=== PATIENT | female | born 1985 | race Caucasian/White ===

== ENCOUNTER → 2017-02-27 | Outpatient (CLI) | payer OTHER | LOC: CAT 07:56 | DX: Z13.6 Encounter for screening for cardiovascular disorders (principal) ==

== ENCOUNTER 2019-12-10 03:14 | Emergency (ER) | payer BC, OTHER ==
[~2019-12-10] VITALS: Ht 160 cm; Wt 74.8 kg
[2019-12-10 04:31] LABS: ABSOLUTE NEUTROPHILS 7.2 thou/uL (1.4-8.2); BASOPHILS 0.2 % (0.0-2.0); EOSINOPHILS 1.7 % (0.0-3.0); HEMATOCRIT 44.9 % (37.0-47.0); HEMOGLOBIN 15.5 gm/dL (12.0-15.0); MCH 30.6 pg (26.0-34.0); MCHC 34.6 g/dL (28.0-37.0); MCV 88.4 fL (80.0-100.0); MONOCYTES 6.8 % (1.0-8.0); PLATELET COUNT 293 thou/uL (150-400); POLYS 72.3 % (36.0-66.0); RBC 5.08 mil/uL (4.20-5.00); RDW 12.4 % (10.5-14.5); WBC 9.9 thou/uL (4.0-11.0)
[2019-12-10 04:42] LABS: CALCIUM 9.2 mg/dL (8.5-10.1); CREATININE 0.9 mg/dL (0.6-1.0); POTASSIUM 3.9 mmol/L (3.5-5.1)
[2019-12-10] MEDS ORDERED: PREDNISONE 10 M10 M1 PO (05:32)
[2019-12-10] MEDS ORDERED: KEFLEX500 M1 PO (05:32)
[2019-12-10 05:41] VITALS: BP 103/64
--- NOTE | 2019-12-12 07:44 | EKG ---
[facility] [place] [address] ELECTROCARDIOGRAM REPORT Name: RICKEY DAN Room #: DEP [facility]#: [id number] Admission: 12/10/19 Attend Phys: Discharge: 12/10/19 Date of : 85 Report #: [id number] THIS REPORT FOR: cc: Greg Lucas Steven F. DO Lundgren, Craig H. MD [facility] THIS REPORT FOR: //name// [facility] ED Test Date: 2019-12-10 Test Time: 04:18:49 Pat Name: RICKEY DAN Department: Room: Gender: Supervisor [place] Department: [place] [id number] : 1985 Requested By: Hillary Jacinto Order Number: [id number] MD: Spencer Vazquez Measurements Intervals [place] Rate: 66 P: 45 CO: 143 QRS: 60 QRSD: 92 T: 41 QT: 432 QTc: 453 Interpretive Statements Sinus arrhythmia Normal tracing No previous ECG available for comparison Electronically Signed On 12-12-2019 7:44:49 CDT by Spencer Vazquez [email or web address] <ELECTRONICALLY SIGNED> By: Spencer Vazquez MD, [facility] 12/12/19 0744 [id number] Spencer Vazquez MD, [facility] /EPI
== END 2019-12-10 05:41 | disposition home or self-care (01) ==
LOC: ER 03:14
PROVIDERS: Emergency Medicine
DX: M25.441 Effusion, right hand (principal); M79.641 Pain in right hand; Z88.6 Allergy status to analgesic agent; Z88.1 Allergy status to other antibiotic agents; Z88.2 Allergy status to sulfonamides; W57.XXXA Bitten or stung by nonvenomous insect and other nonvenomous arthropods, initial encounter; Y93.89 Activity, other specified; Y92.89 Other specified places as the place of occurrence of the external cause; Y99.8 Other external cause status